=== PATIENT | male | born 1950 | race Caucasian/White ===

== ENCOUNTER 2018-04-25 19:55 | Emergency (ER) | payer OTHER ==
[~2018-04-25 19:55] MED LIST: EPINEPHrine 0.1 MG/ML SYG; NA BICARBONATE 8.4% 50 ML SYG
== END 2018-04-25 23:54 | disposition expired ==
LOC: E/R 19:55
DX: I46.9 Cardiac arrest, cause unspecified (principal); I10 Essential (primary) hypertension; Z98.61 Coronary angioplasty status
CPT/HCPCS: 31500; 92950; 99291-25